=== PATIENT | female | born 1950 | race Caucasian/White ===

== ENCOUNTER → 2017-02-20 | Outpatient (CLI) | payer OTHER | LOC: FIMAGING 02-06 14:36 | PROVIDERS: ATTEND Internal Medicine | DX: Z12.31 Encounter for screening mammogram for malignant neoplasm of breast (principal); Z85.3 Personal history of malignant neoplasm of breast | CPT/HCPCS: G0202 ==

== ENCOUNTER 2018-03-16 13:56 | Emergency (ER) | payer OTHER ==
--- NOTE | 2018-03-16 14:47 | EDPHY ---
H & P Stated Complaint: hiking then had pain and "pop" in left knee Time Seen by Provider: 03/16/18 14:30 HPI/ROS: Chief Complaint: Left knee injury HPI: The patient presents to the ED with a left knee injury. She reportedly was hiking on a trail today she felt a pop in her knee. Since that time she has had some pain inside the knee joint difficulty ambulating. She did not have a direct fall or trauma. She denies any acute numbness or weakness. The patient denies significant past medical history. REVIEW OF SYSTEMS: Neuro: no headache, numbness, weakness Musculoskeletal: as above Skin: no abrasion or lacerations Source: Patient - Personal History Current Tetanus/Diphtheria Vaccine: Yes Current Tetanus Diphtheria and Acellular Pertussis (TDAP): Yes Tetanus Vaccine Date: 2017 - Medical/Surgical History Hx Asthma: No Hx Chronic Respiratory Disease: No Hx Diabetes: No Hx Cardiac Disease: No Hx Renal Disease: No Hx Cirrhosis: No Hx Alcoholism: No Hx HIV/AIDS: No Hx Splenectomy or Spleen Trauma: No Other PMH: SLEEP APNEA, hyperlipidemia, Breast lumpectomy, L ACL surgery 1979, app - Social History Smoking Status: Never smoked - Physical Exam Exam: General Appearance: Alert, no distress Skin: No lacerations, No abrasion Back: No midline T/L/S pain Extremities: Tenderness to palpation along the left knee joint with mild effusion. No bony tenderness noted over the fibular head or tibial plateau. 2 + popliteal, dorsalis pedis and posterior tibial pulses Neurological: Intact motor sensory function noted in the left lower extremity Constitutional: Initial Vital Signs Temperature (C) 36.8 C 03/16/18 14:16 Heart Rate 75 03/16/18 14:16 Respiratory Rate 17 03/16/18 14:16 Blood Pressure 144/69 H 03/16/18 14:16 O2 Sat (%) 97 03/16/18 14:16 O2 Delivery Mode Room Air Allergies/Adverse Reactions: Penicillins Allergy (Verified 09/06/14 19:11) ?ANTIHISTIMINE OR CARRIER OF Allergy (Uncoded 09/06/14 19:11) Home Medications: Medication Instructions Recorded Lexapro 03/16/18 Lipitor 10 mg (*) 03/16/18 Medical Decision Making - Diagnostics Imaging Results: Five view left knee x-ray series: Images reviewed by myself. Impression DJD is noted, negative for acute fracture dislocation, small joint effusion per my interpretation. ED Course/Re-evaluation: Patient presents to the ED with a soft tissue injury to her left knee. There is no evidence of an obvious fracture. She does understand that I cannot exclude meniscal or ligamentous injury based upon the evaluation today. The patient will be placed in a knee immobilizer and given crutches. She will follow up with our on-call orthopedic surgeon this week for follow-up visit. Plan to continue ice and NSAIDs as an outpatient. Differential Diagnosis: Differential diagnosis considered includes fracture, sprain, dislocation Departure - Departure Disposition: Home, Routine, Self-Care Clinical Impression: Left knee sprain Condition: Good Additional Instructions: 1. Take Ibuprofen or Motrin 600 mg by mouth three times a day. 2. Knee immobilizer for comfort. Use crutches if needed. 3. The x-ray demonstrates no evidence of an obvious fracture but you could have an injury involving the meniscus or ligament. Please schedule a follow-up appointment with the orthopedic surgeon you have been referred to. Referrals: Gilbert Sousa MD [Medical Doctor] - As per Instructions
[2018-03-16 15:10] VITALS: BP 130/74
== END 2018-03-16 15:06 | disposition home or self-care (01) ==
DX: S83.92XA Sprain of unspecified site of left knee, initial encounter (principal); E78.5 Hyperlipidemia, unspecified; G47.30 Sleep apnea, unspecified; X50.9XXA Other and unspecified overexertion or strenuous movements or postures, initial encounter; Y93.01 Activity, walking, marching and hiking; Y92.89 Other specified places as the place of occurrence of the external cause; Y99.9 Unspecified external cause status
CPT/HCPCS: 73564; 99283; L1830